=== PATIENT | female | born 1960 | race Two or more races ===

== ENCOUNTER → 2017-07-23 | Outpatient (REF) | payer BC ==
[2017-07-23 12:34] LABS: BASO # 0.1 10^3/uL (0.0-0.2); BASO % 0.9 % (0.0-1.0); EOS # 0.1 10^3/uL (0.0-0.50); IMMATURE GRANULOCYTE % 0.3 % (0-0); LYMPH # 2.2 10^3/uL (1.5-4.5); LYMPH % 31.2 % (24.0-44.0); MEAN CORPUSCULAR HEMOGLOBIN 32.8 pg (27.0-33.0); MEAN CORPUSCULAR HGB CONC 33.8 g/dl (32.0-36.5); MEAN CORPUSCULAR VOLUME 97.1 fl (80.0-96.0); MONO # 0.5 10^3/uL (0.0-0.8); MONO % 7.3 % (0.0-5.0); NEUTROPHILS # 4.1 10^3/uL (1.8-7.7); NEUTROPHILS % 58.3 % (36.0-66.0); PLATELET COUNT, AUTOMATED 210 10^3/uL (150-450); RED CELL DISTRIBUTION WIDTH 13.4 % (11.5-14.5)
[2017-07-23 13:14] LABS: ALBUMIN 4.3 GM/DL (3.2-5.2); ALBUMIN/GLOBULIN RATIO 1.19 (1.00-1.93); ALKALINE PHOSPHATASE 68 U/L (45-117); ALT/SGPT 37 U/L (12-78); ANION GAP 10 MEQ/L (8-16); AST/SGOT 18 U/L (7-37); BILIRUBIN,TOTAL 0.4 MG/DL (0.2-1.0); BLOOD UREA NITROGEN 11 MG/DL (7-18); CALCIUM LEVEL 10.2 MG/DL (8.5-10.1); CARBON DIOXIDE LEVEL 26 MEQ/L (21-32); CHLORIDE LEVEL 103 MEQ/L (98-107); CHOLESTEROL LEVEL 368 MG/DL (<200); CREATININE FOR GFR 0.57 MG/DL (0.55-1.02); GLOMERULAR FILTRATION RATE > 60.0 (>51); GLUCOSE, FASTING 106 MG/DL (70-105); POTASSIUM SERUM 4.5 MEQ/L (3.5-5.1); SODIUM LEVEL 139 MEQ/L (136-145); TOTAL PROTEIN 7.9 GM/DL (6.4-8.2); TRIGLYCERIDES LEVEL 213 MG/DL (<150)
== END ==
LOC: M SFHCADAM 10:48
PROVIDERS: ATTEND Family Medicine
DX: Z00.00 Encounter for general adult medical examination without abnormal findings (principal)

== ENCOUNTER 2017-09-11 06:45 | Day surgery (SDC) | payer BC ==
[2017-09-11] MEDS ORDERED: LIDOCAINE 2% MDV 20 ML VIAL As Ordered (06:48)
[2017-09-11] MEDS ORDERED: PROPOFOL 200 MG/20 ML VIAL As Ordered ×2 (06:48→09:03)
[2017-09-11] MEDS: NS 1,000 ML IV (07:00)
== END 2017-09-11 08:44 | disposition home or self-care (01) ==
LOC: M OPP 06:45
DX: Z12.11 Encounter for screening for malignant neoplasm of colon (principal); D12.0 Benign neoplasm of cecum; K64.0 First degree hemorrhoids; K57.30 Diverticulosis of large intestine without perforation or abscess without bleeding; R07.89 Other chest pain; K44.9 Diaphragmatic hernia without obstruction or gangrene; E78.5 Hyperlipidemia, unspecified; K21.9 Gastro-esophageal reflux disease without esophagitis; R12 Heartburn; M54.2 Cervicalgia; M54.89 Other dorsalgia; F41.9 Anxiety disorder, unspecified; Z78.0 Asymptomatic menopausal state; R06.83 Snoring; F17.210 Nicotine dependence, cigarettes, uncomplicated; Z88.8 Allergy status to other drugs, medicaments and biological substances; Z88.1 Allergy status to other antibiotic agents; Z88.2 Allergy status to sulfonamides; Z88.5 Allergy status to narcotic agent; Z91.018 Allergy to other foods; Z79.899 Other long term (current) drug therapy
CPT/HCPCS: 45380

== ENCOUNTER → 2017-09-16 | Outpatient (REF) | payer BC | LOC: M SFHCLERA 12:30 | DX: C44.311 Basal cell carcinoma of skin of nose (principal) ==

== ENCOUNTER → 2017-09-30 | Outpatient (CLI) | payer BC | LOC: M WHC 12:51 | DX: Z12.31 Encounter for screening mammogram for malignant neoplasm of breast (principal) | CPT/HCPCS: 77067 ==

== ENCOUNTER → 2017-10-10 | Outpatient (REF) | payer BC | LOC: M SFHCADAM 09:07 | DX: Z01.419 Encounter for gynecological examination (general) (routine) without abnormal findings (principal) | CPT/HCPCS: G0123 ==

== ENCOUNTER → 2021-05-03 | Outpatient (REF) | payer BC ==
[~2021-05-03] MED LIST: D-3-50003 PO; MILK250C PO; MULT1TAB10 PO
[2021-05-03 14:01] LABS: APPEARANCE, URINE CLEAR (CLEAR); BACTERIA, URINE AUTO 1+ (NEGATIVE); BILIRUBIN, URINE AUTO NEGATIVE (NEGATIVE); BLOOD, URINE BLOOD NEGATIVE (NEGATIVE); COLOR, URINE YELLOW (YELLOW); GLUCOSE, URINE (UA) AUTO NEGATIVE (NEGATIVE); KETONE, URINE AUTO NEGATIVE (NEGATIVE); LEUKOCYTE ESTERASE, URINE AUTO NEGATIVE (NEGATIVE); MUCUS, URINE SMALL (NEGATIVE); NITRITE, URINE AUTO NEGATIVE (NEGATIVE); PROTEIN, URINE AUTO NEGATIVE (NEGATIVE); RBC, URINE AUTO 1 /HPF (0-3); SPECIFIC GRAVITY URINE AUTO 1.014 (1.002-1.035); SQUAMOUS EPITHELIAL CELL UR AU 1 /HPF (0-6); UROBILINOGEN, URINE AUTO 0.2 mg/dL (0.0-2.0); WBC, URINE AUTO 1 /HPF (0-3)
== END ==
LOC: M SFHCADAM 11:22
PROVIDERS: ATTEND Family Medicine
DX: R30.0 Dysuria (principal)

== ENCOUNTER → 2021-05-29 | Outpatient (REF) | payer BC ==
[2021-05-29 14:05] LABS: HEMOGLOBIN A1c 5.5 %
[2021-05-29 14:10] LABS: ALT/SGPT 35 U/L (12-78); BILIRUBIN,TOTAL 0.4 MG/DL (0.2-1.0); BLOOD UREA NITROGEN 14 MG/DL (7-18); CALCIUM LEVEL 9.9 MG/DL (8.8-10.2); CARBON DIOXIDE LEVEL 29 MEQ/L (21-32); CHLORIDE LEVEL 110 MEQ/L (98-107); CHOLESTEROL LEVEL 241 MG/DL (<200); CHOLESTEROL RISK RATIO 3.171 (<5); CREATININE FOR GFR 0.64 MG/DL (0.55-1.30); GLOMERULAR FILTRATION RATE > 60.0 (>45); GLUCOSE, FASTING 103 MG/DL (70-100); HDL CHOLESTEROL 76 MG/DL (>40); LDL CHOLESTEROL 131 MG/DL (<100); NON-HDL-C 165 MG/DL; POTASSIUM SERUM 4.4 MEQ/L (3.5-5.1); SODIUM LEVEL 142 MEQ/L (136-145); TOTAL PROTEIN 7.1 GM/DL (6.4-8.2); TRIGLYCERIDES LEVEL 171 MG/DL (<150)
== END ==
LOC: M SFHCADAM 10:44
PROVIDERS: ATTEND Family Medicine
DX: E78.2 Mixed hyperlipidemia (principal); Z86.73 Personal history of transient ischemic attack (TIA), and cerebral infarction without residual deficits; I10 Essential (primary) hypertension

== ENCOUNTER → 2022-01-11 | Outpatient (REF) | payer BC | LOC: M SFHCADAM 12:38 | PROVIDERS: ATTEND Family Medicine | DX: R87.612 Low grade squamous intraepithelial lesion on cytologic smear of cervix (LGSIL) (principal); Z12.4 Encounter for screening for malignant neoplasm of cervix ==

== ENCOUNTER → 2022-01-12 | Outpatient (CLI) | payer BC | LOC: M WHC 13:15 | PROVIDERS: ATTEND Family Medicine | DX: Z12.31 Encounter for screening mammogram for malignant neoplasm of breast (principal) ==

== ENCOUNTER 2022-03-07 11:25 | Day surgery (SDC) | payer BC ==
[~2022-03-07] VITALS: Ht 170.2 cm; Wt 76.7 kg
[~2022-03-07 11:25] MED LIST changes: +ALLE1TAB23 PO; +FLON1SPR; +LOSA50TA28 PO; +MULT-90 PO; +NS 1,000 ML IV ONE; +ROSU40TA4 PO
[2022-03-07] MEDS ORDERED: LIDOCAINE 2% 100MG/5ML SDV (FOR ANES.) As Ordered ONE (13:12)
[2022-03-07] MEDS ORDERED: propofoL 200 MG/20 ML VIAL As Ordered ONE (13:12)
[2022-03-07 13:40] VITALS: BP 154/85
== END 2022-03-07 13:51 | disposition home or self-care (01) ==
LOC: M OPP 11:25
PROVIDERS: ATTEND Surgery
DX: Z12.11 Encounter for screening for malignant neoplasm of colon (principal); Z86.010 Personal history of colon polyps; K57.30 Diverticulosis of large intestine without perforation or abscess without bleeding; K64.0 First degree hemorrhoids; Z86.73 Personal history of transient ischemic attack (TIA), and cerebral infarction without residual deficits; Z79.2 Long term (current) use of antibiotics; Z79.899 Other long term (current) drug therapy; Z53.8 Procedure and treatment not carried out for other reasons

== ENCOUNTER → 2022-05-22 | Outpatient (REF) | payer BC ==
[~2022-05-22] MED LIST changes: -NS 1,000 ML IV ONE
== END ==
LOC: M SFHCWAGY 10:02
PROVIDERS: ATTEND Specialist
DX: N87.1 Moderate cervical dysplasia (principal)